=== PATIENT | female | born 1995 | race American Indian/Alaskan Native ===

== ENCOUNTER 2019-07-23 16:42 | Observation (INO) | payer SELFPAY ==
[2019-07-23] MEDS ORDERED: NACL 0.9% 1000 ML 2,000 ML ONE (16:54)
[2019-07-23] MEDS ORDERED: ZOFRAN ONE ×2 (16:56→20:57)
[2019-07-23] MEDS ORDERED: NACL 0.9% 500 ML 500 ML IV ONE ×3 (17:03→18:06)
--- NOTE | 2019-07-23 17:36 | Emergency Department Report ---
ED Syncope HPI - General Chief Complaint: Altered Mental Status Stated Complaint: AMS Time Seen by Provider: 07/23/19 16:50 Source: patient, EMS Exam Limitations: clinical condition - History of Present Illness Initial Comments: 24-year-old female who is without care with no past medical history presents to the hospital with syncope, hypotension, and alteration in mental status. EMS received a call 35 minutes prior to arrival from a person (?boyfriend) in another state because she would not answer the phone. It took some time for them to get into the house because PD had to bust open the door. They found patient on the floor covered in feces. Patient is clammy and they were unable to obtain IV access prior to arrival. Patient states she had abdomi nal pain and passed out while on the toilet. She states she has nausea, vomiting, and repeated syncopal episodes prior to arrival. She currently complains of abdominal pain, nausea with vomiting and is diaphoretic and pale. She reports that she had a positive home test with LMP May 12. She has not received care or ultrasound. This is her first she denies previous history of ectopics or miscarriages. Patient is 10 weeks and 2 days by dates. - Related Data Allergies/Adverse Reactions: Allergies No Known Allergies Allergy (Unverified 07/23/19 17:00) Home Medications: Ambulatory Orders HYDROcodone/APAP 5-325 [[place] 5/325] 1 - 2 each PO Q4HR PRN #20 tablet 07/23/19 ED Review of Systems ROS: Stated complaint: AMS Other details as noted in HPI Comment: All other systems reviewed and negative ED Past Medical Hx - Past Medical History Previous Medical History?: No - Surgical History Past Surgical History?: No - Social History Smoking Status: Never Smoker Substance Use Type: None - Medications Home Medications: Home Medications Medication Instructions Recorded Confirmed Last Taken Type HYDROcodone/APAP 5-325 [[place] 1 - 2 each PO Q4HR PRN #20 tablet 07/23/19 Unknown Rx 5/325] ED Physical Exam - General Limitations: Altered Mental Status - Other Other exam information: Gen.: moderate distress Head: Atraumatic Eyes: Normal appearance, pale conjunctiva ENT: Moist mucous membranes Neck: Normal appearance Chest: Clear to auscultation bilaterally, mild tachypnea Cardiovascular: Tachycardic regular rhythm Abdomen: Normal appearance, soft, generalized abdominal tenderness. Bedside FAST exam reveals positive blood Back: Normal appearance Extremity: Full range of motion, normal appearance Neuro: Patient lethargic at times by oriented 3 and easily arousable to tactile stimulation. Speech clear without deficit. No focal deficit. Sensation grossly intact. Psychiatric: Appropriate Skin: Very pale skin ED Course Vital Signs 07/23/19 07/23/19 07/23/19 16:48 16:50 16:55 Temperature 97.7 F Pulse Rate 91 H Respiratory 26 H 24 Rate Blood Pressure Blood Pressure 111/93 72/49 [Left] O2 Sat by Pulse 100 100 Oximetry 07/23/19 07/23/19 07/23/19 16:58 17:00 17:05 Temperature Pulse Rate 89 89 111 H Respiratory 22 20 30 H Rate Blood Pressure 143/114 106/39 Blood Pressure [Left] O2 Sat by Pulse 100 Oximetry 07/23/19 07/23/19 07/23/19 17:10 17:15 17:20 Temperature Pulse Rate 125 H 124 H 120 H Respiratory 32 H 35 H 28 H Rate Blood Pressure 99/45 105/79 105/79 Blood Pressure [Left] O2 Sat by Pulse 99 Oximetry 07/23/19 07/23/19 07/23/19 17:26 17:30 17:36 Temperature Pulse Rate 125 H 120 H 116 H Respiratory 22 29 H 33 H Rate Blood Pressure 110/83 112/31 Blood Pressure [Left] O2 Sat by Pulse 100 100 93 Oximetry 07/23/19 07/23/19 07/23/19 17:40 17:46 17:50 Temperature Pulse Rate 124 H 117 H 126 H Respiratory 36 H 44 H 47 H Rate Blood Pressure 92/43 93/37 93/37 Blood Pressure [Left] O2 Sat by Pulse 100 100 Oximetry 07/23/19 07/23/19 07/23/19 17:56 18:00 18:05 Temperature Pulse Rate 143 H 116 H 116 H Respiratory 39 H 43 H 30 H Rate Blood Pressure 94/44 88/41 89/39 Blood Pressure [Left] O2 Sat by Pulse 100 100 100 Oximetry 07/23/19 07/23/19 07/23/19 18:10 18:16 18:20 Temperature Pulse Rate 116 H 108 H 102 H Respiratory 49 H 34 H 35 H Rate Blood Pressure 89/39 85/26 85/26 Blood Pressure [Left] O2 Sat by Pulse 99 100 100 Oximetry 07/23/19 07/23/19 07/23/19 18:25 18:26 18:30 Temperature 98.1 F Pulse Rate 97 H 93 H 94 H Respiratory 25 H 22 27 H Rate Blood Pressure 93/40 93/40 92/47 Blood Pressure [Left] O2 Sat by Pulse 100 100 100 Oximetry 07/23/19 07/23/19 07/23/19 18:35 18:40 18:41 Temperature 98.3 F Pulse Rate 96 H 90 90 Respiratory 21 22 22 Rate Blood Pressure 93/46 96/44 94/44 Blood Pressure [Left] O2 Sat by Pulse 100 100 100 Oximetry 07/23/19 18:45 Temperature Pulse Rate 88 Respiratory 15 Rate Blood Pressure 81/47 Blood Pressure [Left] O2 Sat by Pulse 100 Oximetry - Reevaluation(s) Reevaluation #1: 07/23/19 17:39 Upon arrival patient is very pale and difficult to obtain large gauge IV access. Two 22-gauge catheters place in the bilateral hands and 2 L of normal saline initiated with pressure bag. Positive FAST exam in the ED suspicious for blood and ruptured ectopic . Central line placed in the right femoral vein for a stat IV access and additional support. One unit of uncrossed O- emergency blood requested while type and cross is in progress. Reevaluation #2: 07/23/19 18:22 Patient blood pressure dropping and she remains hypotensive despite 2.5 L of normal saline and 1 unit of stat uncrossed matched blood. Additional unit of crossmatch blood ordered. SUPERVISORY CIVIL ENGINEER physician at the bedside during ultrasound which showed ruptured ectopic . Patient will be going to the operating room shortly. - Consultations Consultation #1: 07/23/19 17:03 Case discussed with on-call DISPOSAL OPERATOR doctor Dr. Osorio about my concerns of ruptured ectopic given presentation and history of positive test. I have informed him we are resuscitating patient and awaiting laboratory testing, ultrasound, and confirmation of . He is in route to the hospital and request 4 units of PRBCs on hold ED Medical Decision Making - Lab Data Result diagrams: 07/23/19 Unknown 07/23/19 Unknown Lab Results 07/23/19 07/23/19 07/23/19 Range/Units Unknown Unknown Unknown WBC 13.2 H (4.5-11.0) K/mm3 RBC 2.57 L (3.65-5.03) M/mm3 Hgb 7.8 L (10.1-14.3) gm/dl Hct 23.7 L (30.3-42.9) % MCV 92 (79-97) fl MCH 30 (28-32) pg MCHC 33 (30-34) % RDW 17.5 H (13.2-15.2) % Plt Count 260 (140-440) K/mm3 Lymph % (Auto) 18.1 (13.4-35.0) % [place] % (Auto) 4.6 (0.0-7.3) % Eos % (Auto) 0.5 (0.0-4.3) % Baso % (Auto) 0.3 (0.0-1.8) % Lymph # 2.4 (1.2-5.4) K/mm3 [place] # 0.6 (0.0-0.8) K/mm3 Eos # 0.1 (0.0-0.4) K/mm3 Baso # 0.0 (0.0-0.1) K/mm3 Seg Neutrophils % 76.5 H (40.0-70.0) % Seg Neutrophils # 10.1 H (1.8-7.7) K/mm3 PT 15.6 H (12.2-14.9) Sec. INR 1.27 H (0.87-1.13) APTT 20.0 L (24.2-36.6) Sec. Sodium 135 L (137-145) mmol/L Potassium 3.1 L (3.6-5.0) mmol/L Chloride 97.9 L (98-107) mmol/L Carbon Dioxide 16 L (22-30) mmol/L Anion Gap 24 mmol/L BUN 4 L (7-17) mg/dL Creatinine 1.4 H (0.7-1.2) mg/dL Estimated GFR 47 ml/min BUN/Creatinine Ratio 3 % Glucose 334 H (65-100) mg/dL Calcium 7.9 L (8.4-10.2) mg/dL HCG, Quant (0-4) mIU/mL Blood Type Antibody Screen Crossmatch 07/23/19 07/23/19 Range/Units Unknown Unknown WBC (4.5-11.0) K/mm3 RBC (3.65-5.03) M/mm3 Hgb (10.1-14.3) gm/dl Hct (30.3-42.9) % MCV (79-97) fl MCH (28-32) pg MCHC (30-34) % RDW (13.2-15.2) % Plt Count (140-440) K/mm3 Lymph % (Auto) (13.4-35.0) % [place] % (Auto) (0.0-7.3) % Eos % (Auto) (0.0-4.3) % Baso % (Auto) (0.0-1.8) % Lymph # (1.2-5.4) K/mm3 [place] # (0.0-0.8) K/mm3 Eos # (0.0-0.4) K/mm3 Baso # (0.0-0.1) K/mm3 Seg Neutrophils % (40.0-70.0) % Seg Neutrophils # (1.8-7.7) K/mm3 PT (12.2-14.9) Sec. INR (0.87-1.13) APTT (24.2-36.6) Sec. Sodium (137-145) mmol/L Potassium (3.6-5.0) mmol/L Chloride (98-107) mmol/L Carbon Dioxide (22-30) mmol/L Anion Gap mmol/L BUN (7-17) mg/dL Creatinine (0.7-1.2) mg/dL Estimated GFR ml/min BUN/Creatinine Ratio % Glucose (65-100) mg/dL Calcium (8.4-10.2) mg/dL HCG, Quant 37392 H (0-4) mIU/mL Blood Type A POSITIVE Antibody Screen Negative Crossmatch See Detail - Medical Decision Making pt required emergency and aggressive resuscitation for suspected ruptured ectopic . Patient presented pale with poor IV access. Emergent central line was placed with aggressive fluid and blood resuscitation in the ED. Ultrasound eventually confirm rupture ectopic if patient had been taken to the OR by SUPERVISORY CIVIL ENGINEER physician. - Differential Diagnosis ruptured ectopic , arrhythmia, encephalopathy, Critical Care Time: Yes Critical care time in (mins) excluding proc time.: 65 Critical care attestation.: If time is entered above; I have spent that time in minutes in the direct care of this critically ill patient, excluding procedure time. ED Disposition Clinical Impression: Ruptured ectopic , Hypotension, Syncope Disposition: DC09 OP ADMIT IP TO THIS HOSP Is pt being admited?: Yes Condition: Stable Time of Disposition: 18:25 (going to OR)
[2019-07-23] MEDS ORDERED: NACL 0.9% 1000 ML 2,000 ML IV ONE (17:37)
[2019-07-23 17:41] LABS: Basophils % (Auto) 0.3 % (0.0-1.8); Eosinophils # (Auto) 0.1 K/mm3 (0.0-0.4); Eosinophils % (Auto) 0.5 % (0.0-4.3); Hematocrit 23.7 % (30.3-42.9); Hemoglobin 7.8 gm/dl (10.1-14.3); INR 1.27 (0.87-1.13); Lymphocytes # (Auto) 2.4 K/mm3 (1.2-5.4); Lymphocytes % (Auto) 18.1 % (13.4-35.0); Mean Corpuscular HGB Conc 33 % (30-34); Mean Corpuscular Volume 92 fl (79-97); Monocytes # (Auto) 0.6 K/mm3 (0.0-0.8); Monocytes % (Auto) 4.6 % (0.0-7.3); Platelet Count 260 K/mm3 (140-440); Red Blood Count 2.57 M/mm3 (3.65-5.03); Red Cell Distribution Width 17.5 % (13.2-15.2)
[2019-07-23] MEDS ORDERED: DILAUDID ONE ×2 (18:22→21:36)
[2019-07-23] MEDS ORDERED: DIPRIVAN 10 MG/ML IV ONE (18:22)
[2019-07-23] MEDS ORDERED: XYLOCAINE MPF 2% ONE (18:23)
--- NOTE | 2019-07-23 18:23 | Anesthesia Consultation ---
Anesthesia Consult and Med Hx Date of service: 07/23/19 - Airway Anesthetic Teeth Evaluation: Chipped ROM Head & Neck: Adequate Mental/Hyoid Distance: Adequate Mallampati Class: Class II Intubation Access Assessment: Good - Pre-Operative Health Status ASA Pre-Surgery Classification: ASA2, Emergency Proposed Anesthetic Plan: General - Hematic Hx Anemia: Yes Hx Sickle Cell Disease: No - Additional Comments Anesthesia Medical History Comments: Ruptured ectopic
--- NOTE | 2019-07-23 18:23 | Anesthesia Day of Surgery ---
Anesthesia Day of Surgery - Day of Surgery Patient Examined: Yes Patient H&P Reviewed: Yes Patient is NPO: Yes
[2019-07-23 18:28] LABS: Calcium 7.9 mg/dL (8.4-10.2)
--- NOTE | 2019-07-23 18:32 | History and Physical Report ---
History of Present Illness Date of examination: 07/23/19 Date of admission: 07/23/2019 Chief complaint: Passing out, sudden abdomianl pain x 3 hrs, vaginal spotting during . History of present illness: 24 yr old, LMP 05/12/2019. Was aware she was and had planned not to keep it. Was spotting since June without abdominal or pelvic pains till this afternoon when she experienced lisette and worsening pelvic pains. Vital signs upon arrival in the ER were concerning to trigger a central line. Patient was very anxiousbut was conscious and followed our conversation. Past History Past Medical History: no pertinent history - Obstetrical History Expected Date of Delivery: 02/18/20 Actual Gestation: 10 Week(s) 0 Day(s) : 1 Medications and Allergies Allergies Allergy/AdvReac Type Severity Reaction Status Date / Time No Known Allergies Allergy Unverified 07/23/19 17:00 Active Meds: Active Medications Sodium Chloride (Nacl 0.9% 1000 Ml) 2,000 mls @ 999 mls/hr IV BOLUS ONE Stop: 07/23/19 19:37 Last Admin: 07/23/19 16:50 Dose: 999 mls/hr Documented by: Review of Systems All systems: negative Constitutional: sweats Cardiovascular: palpitations, syncope, lightheadedness, no chest pain Respiratory: no cough Breasts: deferred Gastrointestinal: abdominal pain, coffee ground emesis Rectal Exam: deferred - Vital Signs Vital signs: Vital Signs Temp Pulse Resp BP Pulse Ox 97.7 F 91 H 26 H 111/93 100 07/23/19 16:48 07/23/19 16:48 07/23/19 16:48 07/23/19 16:48 07/23/19 16:48 Temp Pulse Resp BP Pulse Ox 97.7 F 120 H 29 H 112/31 100 07/23/19 16:48 07/23/19 17:30 07/23/19 17:30 07/23/19 17:30 07/23/19 17:30 - Physical Exam Breasts: Positive: deferred Lungs: Positive: Normal air movement Abdomen: Positive: distention, tenderness - Obstetrical FHR: other (Radiology US exam was observed: no pole or cardiac activity wa s observed within a sacular structure within the uterus. Large amount of free intraperitoneal fluid was seen.) Results Result Diagrams: 07/23/19 Unknown Abnormal lab results 07/23/19 07/23/19 07/23/19 Range/Units Unknown Unknown Unknown WBC 13.2 H (4.5-11.0) K/mm3 RBC 2.57 L (3.65-5.03) M/mm3 Hgb 7.8 L (10.1-14.3) gm/dl Hct 23.7 L (30.3-42.9) % RDW 17.5 H (13.2-15.2) % Seg Neutrophils % 76.5 H (40.0-70.0) % Seg Neutrophils # 10.1 H (1.8-7.7) K/mm3 PT 15.6 H (12.2-14.9) Sec. INR 1.27 H (0.87-1.13) APTT 20.0 L (24.2-36.6) Sec. Crossmatch See Detail All other labs normal. Ultrasound: report reviewed (Pending official report. ) Assessment and Plan - Patient Problems (1) Ruptured ectopic Status: Acute Plan to address problem: Patient was made aware of potential of a ruptured ectopic and the need to stabilize and then proceed with an exploratory laparoscopy. Patient was told the findings during surgery will be dealt with surgically to control hemorrhage. The findings within the uterus could be a pseudecidual sac or an unviable intrauterine , the patient was told. If there was also an ectopic , this would be an abnormal twin gestation. Risks of surgery including but not limited to air embolism, bleeding, infection, loss of ovarian tissue, electro-thermal injuries, injuries to intra peritoneal viscera were discussed. All patient's questions were answered. She consented to proceed with surgery.
[2019-07-23] MEDS ORDERED: ZOFRAN IV ONE (18:36)
[2019-07-23] MEDS ORDERED: MARCAINE 0.5% INFILTRATI ONE (18:42)
--- NOTE | 2019-07-23 18:49 | Ultrasound Report ---
US OB <= 14 weeks fetus INDICATION / CLINICAL INFORMATION: possible ruptured ectopic. COMPARISON: None available. FINDINGS: Uterus measures 12.3 x 6.3 x 9.7 cm. No intrauterine is seen. Gestational sac with pole is noted outside the uterus, this may be within the left fallopian tu be. [place]-rump length is 2.59 cm, 9 weeks, 3 days. Ovaries are unremarkable. There appears to be complex fluid within the cul-de-sac. IMPRESSION: 1. Gestational sac with pole has a sonographic gestational age of 9 weeks, 3 days. This appears to be outside the uterine cavity, possibly within the left fallopian tubes/adnexa. 2. There is complex fluid in the cul-de-sac which may be hemorrhage. CRITICAL RESULT: Time of Discovery: 5:38 PM central Time of Communication: 5:44 PM central Licensed Practitioner Receiving Report: gina Santana nurse Read Back Performed: Yes. Signer Name: Tam Sevilla MD Signed: 07/23/2019 6:44 PM Workstation Name: [id number]
--- NOTE | 2019-07-23 18:49 | Ultrasound Report ---
US OB <= 14 weeks fetus INDICATION / CLINICAL INFORMATION: possible ruptured ectopic. COMPARISON: None available. FINDINGS: Uterus measures 12.3 x 6.3 x 9.7 cm. No intrauterine is seen. Gestational sac with pole is noted outside the uterus, this may be within the left fallopian tu be. [place]-rump length is 2.59 cm, 9 weeks, 3 days. Ovaries are unremarkable. There appears to be complex fluid within the cul-de-sac. IMPRESSION: 1. Gestational sac with pole has a sonographic gestational age of 9 weeks, 3 days. This appears to be outside the uterine cavity, possibly within the left fallopian tubes/adnexa. 2. There is complex fluid in the cul-de-sac which may be hemorrhage. CRITICAL RESULT: Time of Discovery: 5:38 PM central Time of Communication: 5:44 PM central Licensed Practitioner Receiving Report: gina Santana nurse Read Back Performed: Yes. Signer Name: Tam Sevilla MD Signed: 07/23/2019 6:44 PM Workstation Name: [id number]
[2019-07-23] MEDS ORDERED: ANCEF/STERILE WATER 2 GM/20 ML 0 GM/0 ML SYRINGE IV ONE (19:25)
[2019-07-23] MEDS ORDERED: ANCEF ONE (19:26)
[2019-07-23] MEDS ORDERED: ZEMURON IV ONE (19:32)
[2019-07-23] MEDS ORDERED: QUELICIN ONE (19:32)
[2019-07-23] MEDS ORDERED: PHENYLEPHRINE/NS Syringe 1,000 MCG/10 ML IV ONE (19:32)
[2019-07-23] MEDS ORDERED: NACL 0.9% 1000 ML 1,000 ML ONE ×3 (19:36→21:55)
[2019-07-23] MEDS ORDERED: NACL 0.9% 100 ML ONE (20:08)
[2019-07-23] MEDS ORDERED: NEO SYNEPHRINE ONE (20:08)
[2019-07-23] MEDS ORDERED: ROBINUL ONE (20:56)
[2019-07-23] MEDS ORDERED: BLOXIVERZ ONE (20:56)
[2019-07-23] MEDS ORDERED: SUBLIMAZE IV PRN (21:30)
[2019-07-23] MEDS ORDERED: ZOFRAN IV PRN ×2 (21:30→22:05)
--- NOTE | 2019-07-23 21:32 | Operative Report ---
Operative Report Operative Report: Date of surgery: 07/23/2019 Admitting diagnosis: Ruptured ectopic with massive hemoperitoneum. Postoperative diagnosis: The same. Procedures: Diagnostic laparoscopy, left salpingectomy and D&C. Surgeon:C.MD Yary Anesthesiologist: Aldo Granda Anesthesia: Gen. anesthesia Estimated blood loss from surgery: Less than 5 mL. Complications: None Findings: There was a massive hemoperitoneum with 2000 mL aspirated into the bottle. There still remained some blood in the paracolic gutters and within the pelvis. There was a saccular mass of ruptured mass with visible villi in the midportion of the left fallopian tube. The right fallopian tube was grossly normal. Both ovaries were grossly normal as was the uterus. The bowels, liver and the inferior dome of the diaphragm were grossly normal. The loops of bowels as could be seen through the haze of hemoperitoneum were grossly normal. Procedure in details: The patient was taken to the operating room and given general anesthesia. She was put in the lithotomy position and prepped in the vulvar vagina and abdomen. The drapes were placed. She had arrived in the operating room with an indwelling Miranda catheter and this was prepped and retained. A timeout was done. With the go ahead from the hot room attendant, a bimanual examination was done. The anterior lip of the cervix was then held with a single-tooth tenaculum forceps allowing the cervical canal to be dilated to Perla #27. The 10 mm Vacurette was used to suction evacuate the uterine cavity. The material was sent for histopathological analysis. At the abdomen a stab incision was placed in the sub-umbilical aspect. The Veress needle was inserted. This was aspirated with no drawer of blood. The Veress needle was then flushed through with a small quantity of sterile normal saline without any resistance. Care was taken to insert the Veress needle with its tip pointed towards the hollow of the pelvis. The general peritoneal cavity was insufflated with 1.2 L of carbon dioxide. Due to the massive hemoperitoneum the camera was not initially useful until about 1.4 L of hemoperitoneum had been aspirated. The laparoscope was then inserted and allowed 2 additional ports, one a 10 cm port in the right flank and the other a 5 mm ports to the left side. More hemoperitoneum was aspirated. The culprit mass was then located in the left adnexa and identified as the fallopian tube. Starting from the tubo ovarian ligament the left fallopian tube was excised all the way to the uterine cornua. There was no bleeding Acerra result of the excision. The patient was put in the reverse Trendelenburg allowing irrigation with sterile normal saline and aspiration of multiple fluid out of the peritoneal cavity. At the end, there was no active bleeding seen elsewhere within the peritoneal cavity. The 10 mm port was first removed under direct vision of eights peritoneal side using the laparoscope and no bleeding was observed. This was done for the subumbilical port before that instrument was removed. The pneumoperitoneum was then expelled from the left side before the port was finally removed. The incision on the right flank was closed in 2 layers with 2-0 Vicryl. The 3 incisions were then sealed with Dermabond. The patient tolerated the procedure well and was reported by the hot room attendant to have started making urine again. There were no complications. The blood loss from the procedure itself was negligible Greene the patient had a massive hemoperitoneum of at least 2 L. All sponges and instruments were accounted for. The patient was transferred to the recovery room in stable condition.
[2019-07-23] MEDS: DILAUDID IV PRN ×2 (21:37→21:47)
[2019-07-23] MEDS ORDERED: TORADOL ONE (22:02)
[2019-07-23] MEDS ORDERED: TYLENOL PO PRN (22:05)
[2019-07-23] MEDS ORDERED: MORPHINE IV PRN (22:05)
[2019-07-23] MEDS: D5LR 1,000 ML IV SCH (23:13)
[2019-07-23] MEDS: TORADOL IV SCH (23:19)
[2019-07-24 03:33] LABS: Hematocrit 30.1 % (30.3-42.9); Hemoglobin 10.2 gm/dl (10.1-14.3)
[2019-07-24] MEDS: TORADOL IV SCH ×2 (04:53→10:33)
[2019-07-24] MEDS: D5LR 1,000 ML IV SCH (05:33)
[2019-07-24 15:19] VITALS: BP 106/52
== END 2019-07-24 16:35 | disposition home or self-care (01) ==
LOC: ED 16:42 → OB 21:01
PROVIDERS: ADMIT Obstetrics & Gynecology; ATTEND Obstetrics & Gynecology
DX: O00.90 Unspecified ectopic pregnancy without intrauterine pregnancy (principal); O21.9 Vomiting of pregnancy, unspecified; Z3A.10 10 weeks gestation of pregnancy
CPT/HCPCS: 36415; 36430; 59151; 76801; 76817; 80048; 84702; 85014; 85018; 85025; 85610; 85730; 86850; 86900; 86901; 86920; 88305; 96361; 96374; 96375; 96376; 99291; G0378; J0330; J0690; J1170; J1885; J2270; J2370; J2405; J2704; J2710; J7030; J7040; J7121; P9016